=== PATIENT | female | born 1965 | race American Indian/Alaskan Native ===

== ENCOUNTER 2020-07-25 09:16 | Day surgery (SDC) | payer MEDICARE, OTHER ==
[~2020-07-25 09:16] MED LIST: ACETAMINOPHEN 500 MG TAB PO SCH; CELECOXIB 200 MG CAP PO NR; GABAPENTIN 300 MG CAP PO NR; LACTATED RINGERS 1,000 ML IV SCH; MIDAZOLAM 2 MG/2 ML INJ IV NR; WATER FOR IRRIG STERILE 1,500 ML BOTTLE IR ONE; ceFAZolin/Water 2 GM/20 ML 2 GM/20 ML SYRINGE IV NR; fentaNYL 100 MCG/2 ML INJ IV PRN
--- NOTE | 2020-07-25 10:43 | Anesthesia Consultation ---
Anesthesia Consult and Med Hx Date of service: 07/25/20 - Airway Anesthetic Teeth Evaluation: Good, Chipped (#28) ROM Head & Neck: Adequate Mental/Hyoid Distance: Adequate Mallampati Class: Class III Intubation Access Assessment: Possibly Difficult - Pre-Operative Health Status ASA Pre-Surgery Classification: ASA2 Proposed Anesthetic Plan: General Nerve Block: PECs - Pulmonary Hx Smoking: No Hx Respiratory Symptoms: No - Cardiovascular System Hx Hypertension: Yes Hx Heart Attack/AMI: No Hx Percutaneous Transluminal Coronary Angioplasty (PTCA): No Hx Cardia Arrhythmia: No (hx palpitation with neg cardiac w/u 2018) Hx Pacemaker: No Hx Internal Defibrillator: No - Central Nervous System CVA: No Hx Psychiatric Problems: No - Gastrointestinal Hx Gastroesophageal Reflux Disease: No - Endocrine Hx Renal Disease: No Hx Liver Disease: No Hx Insulin Dependent Diabetes: No Hx Non-Insulin Dependent Diabetes: No Hx Thyroid Disease: Yes (hx thyroid dz 2019, now euthyroid off meds) - Other Systems Hx Cancer: Yes (breast ca) - Additional Comments Anesthesia Medical History Comments: No hx anesthetic complications.
--- NOTE | 2020-07-25 10:43 | Anesthesia Day of Surgery ---
Anesthesia Day of Surgery - Day of Surgery Patient Examined: Yes Patient H&P Reviewed: Yes Patient is NPO: Yes
[2020-07-25] MEDS ORDERED: ONDANSETRON 4 MG/2 ML INJ IV PRN (11:00)
[2020-07-25] MEDS ORDERED: HYDROcodone/ACETAMINOPHEN 5-325 MG TAB PO PRN (11:00)
[2020-07-25] MEDS ORDERED: HYDROmorphone 1 MG/1 ML INJ IV PRN (11:00)
[2020-07-25] MEDS ORDERED: dexAMETHasone 4 MG/ML VIAL ONE (12:32)
[2020-07-25] MEDS ORDERED: BUPIVACAINE-EPINEPHRINE/PF 0.5%-1:200,000 (30 ML) VIAL INFILTRATI ONE (12:32)
[2020-07-25] MEDS ORDERED: GLYCOPYRROLATE 0.4 MG/2 ML INJ ONE ×2 (14:00→14:17)
[2020-07-25] MEDS ORDERED: METHYLENE BLUE 50 MG/10 ML AMP ONE (14:12)
[2020-07-25] MEDS ORDERED: SODIUM CHLORIDE P/F VIAL 10 ML 10 ML ONE (14:12)
[2020-07-25] MEDS ORDERED: ONDANSETRON 4 MG/2 ML INJ ONE (14:17)
[2020-07-25] MEDS ORDERED: PHENYLEPHRINE/NS 1,000 MCG/10 ML SYRINGE (OR USE) IV ONE ×2 (14:17→15:50)
[2020-07-25] MEDS ORDERED: NEOSTIGMINE 10MG/10 ML INJ MDV ONE (14:17)
[2020-07-25] MEDS ORDERED: dexAMETHasone 20 MG/5 ML VIAL ONE (14:17)
[2020-07-25] MEDS ORDERED: fentaNYL 100 MCG/2 ML INJ ONE ×2 (14:17→15:26)
[2020-07-25] MEDS ORDERED: LIDOCAINE MPF (2%) 20 MG/1 ML VIAL 5 ML ONE (14:17)
[2020-07-25] MEDS ORDERED: propofoL 200 MG/20 ML VIAL IV ONE (14:18)
[2020-07-25] MEDS ORDERED: ROCURONIUM 50 MG/5 ML INJ IV ONE (14:19)
--- NOTE | 2020-07-25 14:35 | Short Stay Summary ---
Short Stay Documentation Date of service: 07/25/20 - History H&P: obtained from office - Allergies and Medications Current Medications: Allergies fish derived Allergy (Verified 07/19/20 17:42) Anaphylaxis shellfish derived Allergy (Verified 07/19/20 17:42) Anaphylaxis Home Medications Medication Instructions Recorded Confirmed Last Taken Type Cetirizine HCl [ZyrTEC 10mg cap] 10 mg PO DAILY PRN 07/19/20 07/19/20 Unknown History Ergocalciferol [Vitamin D2] 1 cap PO QWEEK 07/19/20 07/25/20 07/23/20 09:00 History Lisinopril/Hydrochlorothiazide 1 each PO DAILY 07/19/20 07/25/20 07/24/20 09:00 History [Zestoretic 10-12.5 mg Tablet] Simvastatin 20 mg PO HS 07/19/20 07/25/20 07/24/20 20:00 History Active Medications Acetaminophen (Acetaminophen 500 Mg Tab) 1,000 mg PO PREOP GUILHERME Stop: 07/25/20 21:00 Last Admin: 07/25/20 10:55 Dose: 1,000 mg Documented by: Hydrocodone Bitart/Acetaminophen (Hydrocodone/Acetaminophen 5-325 Mg Tab) 2 each PO ONCE PRN PRN Reason: Pain, Moderate (4-6) Stop: 07/25/20 18:00 Celecoxib (Celecoxib 200 Mg Cap) 200 mg PO PREOP NR Stop: 07/25/20 21:00 Last Admin: 07/25/20 10:55 Dose: 200 mg Documented by: Fentanyl (Fentanyl 100 Mcg/2 Ml Inj) 100 mcg IV ONCE PRN PRN Reason: sedation for nerve block Stop: 07/25/20 21:00 Last Admin: 07/25/20 12:38 Dose: 100 mcg Documented by: Gabapentin (Gabapentin 300 Mg Cap) 300 mg PO PREOP NR Stop: 07/25/20 21:00 Last Admin: 07/25/20 10:55 Dose: 300 mg Documented by: Hydromorphone HCl (Hydromorphone 1 Mg/1 Ml Inj) 0.5 mg IV Q10MIN PRN PRN Reason: Pain , Severe (7-10) Stop: 07/25/20 18:00 Cefazolin Sodium (Ancef/Sterile Water 2 Gm/20 Ml) 2 gm in 20 mls @ 80 mls/hr IV PREOP NR; Protocol Stop: 07/25/20 23:00 Lactated Ringer's (Lactated Ringers) 1,000 mls @ 100 mls/hr IV DIRECT GUILHERME Stop: 07/25/20 23:59 Last Admin: 07/25/20 11:15 Dose: 100 mls/hr Documented by: Midazolam HCl (Midazolam 2 Mg/2 Ml Inj) 2 mg IV PREOP NR Stop: 07/25/20 21:00 Last Admin: 07/25/20 12:38 Dose: 2 mg Documented by: Ondansetron HCl (Ondansetron 4 Mg/2 Ml Inj) 4 mg IV ONCE PRN PRN Reason: Nausea And Vomiting Stop: 07/25/20 18:00 - Brief post op/procedure progress note Date of procedure: 07/25/20 Pre-op diagnosis: Right breast cancer upper outer quadrant Post-op diagnosis: same Procedure: Right partial mastectomy with SLNB Anesthesia: GETA Findings: Right breast mass and SLNB x3 Surgeon: STEPHANIE TOMAS Estimated blood loss: minimal Pathology: list (right partial mastectomy; ) Specimen disposition: to lab Condition: stable - Disposition Condition at discharge: Good Disposition: DC-01 TO HOME OR SELFCARE Short Stay Discharge Plan Activity: other (no heavy lifting) Diet: regular Wound: keep clean and dry (may shower in 48 hours; wear breast binder; no baths) Additional Instructions: NO HEAVY LIFTING NO BLOOD TESTS, NO BLOOD PRESSURE, NO IV, NO INJECTIONS ON RIGHT ARM CAN RESUME REGULAR DIET, BUT FOR FIRST MEAL EAT SOMETHING LIGHT; AVOID SPICY AND GREASY FOODS WOUND - KEEP CLEAN AND DRY; WEAR BREAST BINDER AT ALL TIMES EXCEPT WHEN SHOWERING MAY SHOWER IN 48 HRS; NO BATHS OR SWIMMING Follow up with: STEPHANIE TOMAS MD [Staff Physician] - 7 Days Forms: Outpatient Surgery DC Inst. Prescriptions: oxyCODONE /ACETAMINOPHEN [Percocet 5/325] 1 tab PO Q6HR PRN #12 tablet PRN Reason: Pain
--- NOTE | 2020-07-25 14:38 | Operative Report ---
Operative Report Operative Report: Operative Report: July 25, 2020 Preoperative diagnosis: Right breast cancer of the upper outer quadrant Postoperative diagnosis: Same Procedure: Right breast partial mastectomy of the upper outer quadrant with SLNB Surgeon: Shahla Rosales MD Printing Roller Polisher: Bart Eisenberg MD Anesthesia: General Findings: Right breast mass and clip present within radiograph specimen-mass close to nipple; x3 SLNs Complications: None EBL: 50 cc (minimal) Disposition: PACU in good condition Indications for operative procedure: This is a 54 year old lady with newly diagnosed right breast cancer of the upper outer quadrant, IDCA grade 2, Stage IB [id number] ER/KS positive (11:00 position 2 cm FN-palpable). She wished to proceed with breast conservation and understood if margins were positive given close proximity to nipple, additional surgery at a later time may be indicated to include a central mastectomy vs mastectomy. She understands the role of adjuvant radiation therapy and Oncotype DX will be obtained by medical oncology. She wished to proceed with the above procedure. Procedure in detail: Anesthesia placed right pectoral block. Patient was then taken to the operating room. Gen. anesthesia was administered. The right nipple was injected with radioisotope and 1 cc of methylene blue dye. Right breast and axilla were prepped and draped in the normal sterile operative fashion. Timeout was performed. Gamma probe was inserted into the axilla. The area of hot spot was identified. A right axillary incision was made with a 15 blade knife with dissection taken down to the subcutaneous tissues. The axillary fascia was opened with the Bovie cautery. 3 SLNs were identified and dissected free with blue dye present. All remaining counts were less than 10% of the highest count. Lymph nodes were sent to pathology for permanent processing. Hemostasis was obtained in the right axillary cavity. Axillary cavity was appropriately irrigated and suctioned. Hemostasis was noted. Axillary fascia was approximated and closed using interrupted 3-0 Vicryl and the skin brought together and closed using a running 4-0 Monocryl followed by skin affix. Attention was then taken towards the right breast. Ultrasound was used to sigifredo the area of incision; known breast malignancy at 11:00 position 1-2 cm FN of 22 mm. A NAC breast incision around 11:00 position with a 15 blade knife and dissection taken down to subcutaneous tissues. First began raising of the superior flap with dissection taken superiorly past the area of known malignancy and then taken down to the pectoralis muscle, followed by raising of the inferior flap, medial flap and lateral flap with all flaps taken past the area of known malignancy and then posteriorly down to the pectoralis muscle. The breast area of concern was appropriately removed posteriorly from the pectoralis muscle with the aid of the Bovie cautery. Specimen was marked and then sent to pathology and radiology; radiograph specimen with mass and clip present. Breast cavity was irrigated and hemostasis was obtained. Ultrasound used as well to e valuate margins that appeared cleared. Then proceeded with complex closure. Nipple with good vascularity and perfusion. The posterior deep breast tissues were then mobilized to approximate and cover pectoralis muscle; close using interrupted 3-0 Vicryl. Deep breast tissues were then approximated and closed using interrupted 3-0 Vicryl. The subcutaneous tissues were then approximated and closed using interrupted 3-0 Vicryl followed by closing of the skin with a running 4-0 Monocryl and skin affix. The patient tolerated surgery very well and she was awaken from anesthesia without any complication and transported to PACU in good condition.
[2020-07-25] MEDS ORDERED: METHYLENE BLUE 50 MG/10 ML AMP IRRIGATION ONE (14:44)
[2020-07-25] MEDS ORDERED: SODIUM CHLORIDE 0.9% P/F 10 ML VIAL INFILTRATI ONE (14:44)
[2020-07-25] MEDS ORDERED: MORPHINE 2 MG/1 ML INJ ONE (17:26)
[2020-07-25] MEDS ORDERED: BACITRACIN ZINC OINT 28.4 GM TP ONE (17:27)
--- NOTE | 2020-07-25 17:36 | Mammography Report ---
BREAST SPECIMEN RADIOGRAPH HISTORY: Right breast biopsy FINDINGS/IMPRESSION: The submitted radiograph or radiographs demonstrate(s) the presence of a biopsy clip in the presence of dense soft tissue. No localization wire is present. Signer Name: Darshana Chance MD Signed: 07/25/2020 5:31 PM Workstation Name: [id number]
[2020-07-25 20:05] VITALS: BP 122/72
--- NOTE | 2020-07-25 20:39 | Post Anesthesia Evaluation ---
- Post Anesthesia Evaluation Patient Participated: Yes Airway Patent: Yes Stable Respiratory Function: Yes Nausea/Vomiting: No Temp > 96.8F: Yes Pain Manageable: Yes Adequeate Hydration: Yes Anesthesia Complications: No
== END 2020-07-25 09:17 | disposition home or self-care (01) ==
LOC: OR 09:16
PROVIDERS: ATTEND Surgery
DX: C50.411 Malignant neoplasm of upper-outer quadrant of right female breast (principal); I89.8 Other specified noninfective disorders of lymphatic vessels and lymph nodes; E78.00 Pure hypercholesterolemia, unspecified; I10 Essential (primary) hypertension; Z20.822 Contact with and (suspected) exposure to COVID-19; Z91.013 Allergy to seafood; Z79.899 Other long term (current) drug therapy; Z98.890 Other specified postprocedural states; Z90.710 Acquired absence of both cervix and uterus
CPT/HCPCS: 19307; 38792; 76098; 78800; 88307; 88333; A9541; J0690; J1100; J2250; J2270; J2370; J2405; J2704; J2710; J3010; J7120; Q9968; U0003; 64450